=== PATIENT | male | born 1935 | race Caucasian/White ===

== ENCOUNTER 2016-11-03 22:21 | Inpatient (IN) | payer MEDICARE, BC ==
[2016-11-03] MEDS ORDERED: Sodium Chloride 0.9% 10 ML Syringe FLUSH PRN (22:45)
[2016-11-03] MEDS ORDERED: Ibuprofen 600 MG Tab PO ONE (23:23)
[2016-11-03] MEDS ORDERED: Sodium Chloride 0.9% 1,000 ML IV SCH (23:45)
[2016-11-04] MEDS ORDERED: Levofloxacin/Dextrose 5%-Water 500 MG in Premix Bag 1 BAG IV ONE (01:14)
--- NOTE | 2016-11-04 01:34 | EDM.PDOC ---
ED HPI GENERAL MEDICAL PROBLEM - General Chief Complaint: Fever Stated Complaint: ILLNESS Time Seen by Provider: 11/03/16 22:50 Source of Information: Reports: Patient, Family History Limitations: Reports: No Limitations - History of Present Illness INITIAL COMMENTS - FREE TEXT/NARRATIVE: pt spiked a high temp and became very weak tonight. This was quite sudden. 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 - Related Data Allergies Allergy/AdvReac Type Severity Reaction Status Date / Time No Known Allergies Allergy Verified 11/03/16 23:20 Home Meds: Home Meds Aspirin [Halfprin] 162 mg PO DAILY 11/03/16 [History] Clopidogrel Bisulfate [Clopidogrel] 75 mg PO DAILY 11/03/16 [History] Omeprazole 20 mg PO DAILY 11/03/16 [History] Sotalol HCl [Sotalol] 160 mg PO BID 11/03/16 [History] Sucralfate 1 gm PO BID 11/03/16 [History] atorvaSTATin [Lipitor] 80 mg PO BEDTIME 11/03/16 [History] Losartan Potassium 25 mg PO DAILY 11/04/16 [History] Past Medical History Cardiovascular History: Reports: CAD, High Cholesterol, Hypertension, [place], Pacemaker Respiratory History: Reports: TB Musculoskeletal History: Reports: Back Pain, Chronic - Infectious Disease History Infectious Disease History: Reports: Chicken Pox, Measles, Mumps, TB - Past Surgical History HEENT Surgical History: Reports: Tonsillectomy Cardiovascular Surgical History: Reports: Coronary Artery Stent, Percutaneous Transluminal Angioplasty GI Surgical History: Reports: Hernia Repair/Other Social & Family History - Tobacco Use Smoking Status *Q: Former Smoker Used Tobacco, but Quit: Yes Month Tobacco Last Used: 1963 - Caffeine Use Caffeine Use: Reports: None, Coffee - Recreational Drug Use Recreational Drug Use: No ED ROS GENERAL - Review of Systems Review Of Systems: See Below Constitutional: Reports: Fever, Chills, Malaise, Weakness HEENT: Reports: No Symptoms Respiratory: Reports: No Symptoms Cardiovascular: Reports: No Symptoms Endocrine: Reports: No Symptoms GI/Abdominal: Reports: No Symptoms : Reports: No Symptoms, Other (pt is spiking a high temp) Musculoskeletal: Reports: No Symptoms Skin: Reports: No Symptoms Neurological: Reports: Dizziness ED EXAM, SEPSIS - Physical Exam Exam: See Below Text/Narrative:: pt spiked a high temp and he became very weak. He had a temp of 102. He has not been vomiting. He has not had a cough. Exam Limited By: No Limitations General Appearance: Alert, Anxious Ears: Normal TMs Nose: Normal Inspection Throat/Mouth: Normal Inspection Head: Atraumatic Neck: Normal Inspection Respiratory/Chest: No Respiratory Distress Cardiovascular: Regular Rate, Rhythm GI/Abdominal Exam: Soft, Non-Tender (Male) Exam: Deferred Rectal (Males) Exam: Deferred Back: Normal Inspection Extremities: Normal Inspection Neurological: Alert, Oriented, Inattentive Course - Vital Signs Last Recorded V/S: Last Vital Signs Temp 38.6 C H 11/03/16 23:58 Pulse 60 11/04/16 00:44 Resp 20 11/04/16 00:44 BP 77/33 L 11/04/16 00:44 Pulse Ox 90 L 11/04/16 00:44 - Orders/Labs/Meds Orders: Active Orders 24 hr Category Date Time Status Chest 1V Frontal [CR] Stat Exams 11/03/16 22:44 Taken CULTURE BLOOD [BC] Urgent Lab 11/03/16 22:55 Received CULTURE BLOOD [BC] Urgent Lab 11/03/16 23:00 Received CULTURE URINE [RM] Stat Lab 11/04/16 00:40 Uncollected Levofloxacin/Dextrose 5%-Water [Levaquin in D5W 500 MG/ Med 11/04/16 01:14 Active 100 ML] 500 mg Premix Bag 1 bag IV ONETIME Sodium Chloride 0.9% [Normal Saline] 1,000 ml Med 11/03/16 23:45 Active IV ASDIRECTED Sodium Chloride 0.9% [Saline Flush] Med 11/03/16 22:45 Active 10 ml FLUSH ASDIRECTED PRN Blood Culture x2 Reflex Set [OM.PC] Urgent Oth 11/03/16 22:51 Ordered Saline Lock Insert [OM.PC] Routine Oth 11/03/16 22:45 Ordered Medication Orders Sodium Chloride (Normal Saline) 1,000 mls @ 400 mls/hr IV ASDIRECTED TASHA Last Admin: 11/04/16 00:04 Dose: 400 mls/hr Levofloxacin/Dextrose 500 mg/ (Premix) 100 mls @ 100 mls/hr IV ONETIME ONE Stop: 11/04/16 02:13 Sodium Chloride (Saline Flush) 10 ml FLUSH ASDIRECTED PRN PRN Reason: Keep Vein Open Labs: Laboratory Tests 11/03/16 11/03/16 11/03/16 Range/Units 22:43 22:55 22:55 WBC 13.4 H (4.5-11.0) K/uL RBC 4.36 (4.30-5.90) M/uL Hgb 14.2 (12.0-15.0) g/dL Hct 41.4 (40.0-54.0) % MCV 95 (80-98) fL MCH 33 H (27-31) pg MCHC 34 (32-36) % Plt Count 154 (150-400) K/uL Neut % (Auto) 89 H (36-66) % Lymph % (Auto) 5 L (24-44) % [place] % (Auto) 7 H (2-6) % Eos % (Auto) 0 L (2-4) % Baso % (Auto) 0 (0-1) % Sodium 140 (140-148) mmol/L Potassium 3.7 (3.6-5.2) mmol/L Chloride 105 (100-108) mmol/L Carbon Dioxide 27 (21-32) mmol/L Anion Gap 7.8 (5.0-14.0) mmol/L BUN 19 H (7-18) mg/dL Creatinine 1.6 H (0.8-1.3) mg/dL Est Cr Clr Drug Dosing 42.81 mL/min Estimated GFR (MDRD) 42 L (>60) Glucose 115 H (74-106) mg/dL Lactic Acid 2.1 H (0.4-2.0) mmol/L Calcium 8.5 (8.5-10.1) mg/dL Total Bilirubin 0.9 (0.2-1.0) mg/dL AST 19 (15-37) U/L ALT 17 (12-78) U/L Alkaline Phosphatase 88 (46-116) U/L Dkz-A-Rkvvayslziv Pept (5-450) pg/mL Total Protein 7.2 (6.4-8.2) g/dL Albumin 3.5 (3.4-5.0) g/dL Globulin 3.7 H (2.3-3.5) g/dL Albumin/Globulin Ratio 1.0 L (1.2-2.2) Urine Color Urine Appearance Urine pH (4.5-8.0) Ur Specific [place] (1.008-1.030) Urine Protein (NEGATIVE) mg/dL Urine Glucose (UA) (NEGATIVE) mg/dL Urine Ketones (NEGATIVE) mg/dL Urine Occult Blood (NEGATIVE) Urine Nitrite (NEGAITVE) Urine Bilirubin (NEGATIVE) Urine Urobilinogen (NORMAL) mg/dL Ur Leukocyte Esterase (NEGATIVE) Urine RBC (0-5) Urine WBC (0-5) Ur Epithelial Cells Amorphous Sediment Urine Bacteria Urine Mucus 11/03/16 11/03/16 Range/Units 23:04 23:48 WBC (4.5-11.0) K/uL RBC (4.30-5.90) M/uL Hgb (12.0-15.0) g/dL Hct (40.0-54.0) % MCV (80-98) fL MCH (27-31) pg MCHC (32-36) % Plt Count (150-400) K/uL Neut % (Auto) (36-66) % Lymph % (Auto) (24-44) % [place] % (Auto) (2-6) % Eos % (Auto) (2-4) % Baso % (Auto) (0-1) % Sodium (140-148) mmol/L Potassium (3.6-5.2) mmol/L Chloride (100-108) mmol/L Carbon Dioxide (21-32) mmol/L Anion Gap (5.0-14.0) mmol/L BUN (7-18) mg/dL Creatinine (0.8-1.3) mg/dL Est Cr Clr Drug Dosing mL/min Estimated GFR (MDRD) (>60) Glucose (74-106) mg/dL Lactic Acid (0.4-2.0) mmol/L Calcium (8.5-10.1) mg/dL Total Bilirubin (0.2-1.0) mg/dL AST (15-37) U/L ALT (12-78) U/L Alkaline Phosphatase (46-116) U/L Uef-Q-Tlrhynetnwq Pept 1306 H (5-450) pg/mL Total Protein (6.4-8.2) g/dL Albumin (3.4-5.0) g/dL Globulin (2.3-3.5) g/dL Albumin/Globulin Ratio (1.2-2.2) Urine Color Yellow Urine Appearance Slightly cloudy Urine pH 5.0 (4.5-8.0) Ur Specific [place] 1.010 (1.008-1.030) Urine Protein Negative (NEGATIVE) mg/dL Urine Glucose (UA) Negative (NEGATIVE) mg/dL Urine Ketones Negative (NEGATIVE) mg/dL Urine Occult Blood Moderate (NEGATIVE) Urine Nitrite Negative (NEGAITVE) Urine Bilirubin Negative (NEGATIVE) Urine Urobilinogen Normal (NORMAL) mg/dL Ur Leukocyte Esterase Negative (NEGATIVE) Urine RBC 5-10 H (0-5) Urine WBC 0-5 (0-5) Ur Epithelial Cells Not seen Amorphous Sediment Not seen Urine Bacteria Many Urine Mucus Not seen Meds: Medications Generic Name Dose Route Start Last Admin Trade Name Freq PRN Reason Stop Dose Admin Sodium Chloride 1,000 mls @ 400 mls/hr 11/03/16 23:45 11/04/16 00:04 Normal Saline IV 400 mls/hr ASDIRECTED TASHA Administration Levofloxacin/Dextrose 500 mg/ 100 mls @ 100 mls/hr 11/04/16 01:14 Premix IV 11/04/16 02:13 ONETIME ONE Sodium Chloride 10 ml 11/03/16 22:45 Saline Flush FLUSH ASDIRECTED PRN Keep Vein Open Discontinued Medications Generic Name Dose Route Start Last Admin Trade Name Freq PRN Reason Stop Dose Admin Ibuprofen 600 mg 11/03/16 23:23 11/03/16 23:58 Motrin PO 11/03/16 23:24 600 mg ONETIME ONE Administration - Re-Assessments/Exams Free Text/Narrative Re-Assessment/Exam: 11/04/16 01:30 pt was found to have an elevated wbc. His urine had alot bacteria and was cultured. His chest xray did not reveal a infiltrate. His temp was 102 and that is now down. blood cultures and urine culture is pending. His lactic acid is just borderline. 11/04/16 01:38 Departure - Departure Time of Disposition: 01:40 Disposition: Admitted As Inpatient 67 Condition: Fair Clinical Impression: Sepsis, Dehydration, UTI (urinary tract infection) - Discharge Information Forms: ED Department Discharge Care Plan Goals: admit to Dr feldman. - My Orders Last 24 Hours: My Active Orders 11/03/16 22:44 Chest 1V Frontal [CR] Stat 11/03/16 22:45 Sodium Chloride 0.9% [Saline Flush] 10 ml FLUSH ASDIRECTED PRN Saline Lock Insert [OM.PC] Routine 11/03/16 22:51 Blood Culture x2 Reflex Set [OM.PC] Urgent 11/03/16 22:55 CULTURE BLOOD [BC] Urgent 11/03/16 23:00 CULTURE BLOOD [BC] Urgent 11/03/16 23:45 Sodium Chloride 0.9% [Normal Saline] 1,000 ml IV ASDIRECTED 11/04/16 00:40 CULTURE URINE [RM] Stat 11/04/16 01:14 Levofloxacin/Dextrose 5%-Water [Levaquin in D5W 500 MG/100 ML] 500 mg Premix Bag 1 bag IV ONETIME - Assessment/Plan Last 24 Hours: My Active Orders 11/03/16 22:44 Chest 1V Frontal [CR] Stat 11/03/16 22:45 Sodium Chloride 0.9% [Saline Flush] 10 ml FLUSH ASDIRECTED PRN Saline Lock Insert [OM.PC] Routine 11/03/16 22:51 Blood Culture x2 Reflex Set [OM.PC] Urgent 11/03/16 22:55 CULTURE BLOOD [BC] Urgent 11/03/16 23:00 CULTURE BLOOD [BC] Urgent 11/03/16 23:45 Sodium Chloride 0.9% [Normal Saline] 1,000 ml IV ASDIRECTED 11/04/16 00:40 CULTURE URINE [RM] Stat 11/04/16 01:14 Levofloxacin/Dextrose 5%-Water [Levaquin in D5W 500 MG/100 ML] 500 mg Premix Bag 1 bag IV ONETIME
[2016-11-04] MEDS ORDERED: Sodium Chloride 0.9% 1,000 ML IV SCH (02:30)
--- NOTE | 2016-11-04 02:31 | PCM.HP ---
H&P History of Present Illness - General Date of Service: 11/04/16 Admit Problem/Dx: Admission Diagnosis/Problem Admission Diagnosis/Problem Acute cystitis Source of Information: Patient, Family, Provider History Limitations: Reports: No Limitations - History of Present Illness Initial Comments - Free Text/Narative: Oniel presents to the emergency room with rigors and weakness. He reports sudden onset of shaking chills the afternoon prior to admission. He was unable to get warm throughout the course of the afternoon and into the evening became very weak and confused. He was brought to the emergency room at that point. He reports that he was in his usual state of health prior to onset of symptoms. He does not report headache, shortness of breath, chest pain or abdominal pain. No reports of nausea. He reports some increased urinary frequency but this is not a new thing for him. No recent diarrhea. No sick contacts. No travel. Appetite had been normal up until yesterday afternoon. Workup in the emergency room was suggestive of a urinary tract infection with sepsis. He will be admitted to the intensive care unit for management. - Related Data Allergies/Adverse Reactions: Allergies Allergy/AdvReac Type Severity Reaction Status Date / Time No Known Allergies Allergy Verified 11/03/16 23:20 Home Medications: Home Meds Aspirin [Halfprin] 162 mg PO DAILY 11/03/16 [History] Clopidogrel Bisulfate [Clopidogrel] 75 mg PO DAILY 11/03/16 [History] Omeprazole 20 mg PO DAILY 11/03/16 [History] Sotalol HCl [Sotalol] 160 mg PO BID 11/03/16 [History] Sucralfate 1 gm PO BID 11/03/16 [History] atorvaSTATin [Lipitor] 80 mg PO BEDTIME 11/03/16 [History] Fish Oil/DHA/EPA [Fish Oil 1,200 MG] 1 each PO BID 11/04/16 [History] Losartan Potassium 12.5 mg PO DAILY 11/04/16 [History] Past Medical History Cardiovascular History: Reports: CAD, High Cholesterol, Hypertension, [place], Pacemaker Respiratory History: Reports: TB Other Respiratory History: c-pap Musculoskeletal History: Reports: Back Pain, Chronic - Infectious Disease History Infectious Disease History: Reports: Chicken Pox, Measles, Mumps, TB - Past Surgical History HEENT Surgical History: Reports: Tonsillectomy Cardiovascular Surgical History: Reports: Coronary Artery Stent, Percutaneous Transluminal Angioplasty GI Surgical History: Reports: Hernia Repair/Other Social & Family History - Family History Cardiac: Reports: CAD Oncologic: Reports: Colon - Tobacco Use Smoking Status *Q: Former Smoker Used Tobacco, but Quit: Yes Month Tobacco Last Used: 1963 - Caffeine Use Caffeine Use: Reports: None, Coffee - Alcohol Use Alcohol Use History: Yes Days Per Week of Alcohol Use: 3 - Recreational Drug Use Recreational Drug Use: No H&P Review of Systems - Review of Systems: Review Of Systems: See Below Free Text/Narrative: A complete 12 point review of systems was obtained. Pertinent positives and negatives are noted in the history of present illness. All other systems were reviewed and were negative except as noted. Exam - Exam Exam: See Below - Vital Signs Vital Signs: Last Vital Signs Temp 37.8 C 11/04/16 01:26 Pulse 60 11/04/16 02:25 Resp 24 H 11/04/16 02:25 BP 95/52 L 11/04/16 02:25 Pulse Ox 61 L 11/04/16 02:25 Weight: 108.862 kg - Exam Quality Assessment: No: Supplemental Oxygen General: Alert, Oriented, Cooperative. No: Mild Distress HEENT: Conjunctiva Clear. No: Mucosa Moist & [place] (dry), Scleral Icterus Neck: Supple, Trachea Midline. No: Lymphadenopathy, JVD Lungs: Clear to Auscultation, Normal Respiratory Effort Cardiovascular: Regular Rate, Regular Rhythm, Systolic Murmur (soft SHIVA at the apex) GI/Abdominal Exam: Normal Bowel Sounds, Soft, Non-Tender, No Distention, Other ( obese) Extremities: Normal Inspection, Pedal Edema (mild pitting bilateral ankle edema) , Other (scar left lower leg (healed)) Peripheral Pulses: 2+: Dorsalis Pedis (L), Dorsalis Pedis (R) Skin: Warm, Dry. No: Rash Neuro Extensive - Mental Status: Alert, Oriented x3, Nl Response to Commands Neuro Extensive - Motor, Sensory, Reflexes: CN II-XII Intact. No: Dysarthria, Abnormal Motor, Tremor Psychiatric: Alert, Normal Affect - Patient Data Lab Results Last 24 hrs: Laboratory Results - last 24 hr 11/03/16 11/03/16 11/03/16 Range/Units 22:43 22:55 22:55 WBC 13.4 H (4.5-11.0) K/uL RBC 4.36 (4.30-5.90) M/uL Hgb 14.2 (12.0-15.0) g/dL Hct 41.4 (40.0-54.0) % MCV 95 (80-98) fL MCH 33 H (27-31) pg MCHC 34 (32-36) % Plt Count 154 (150-400) K/uL Neut % (Auto) 89 H (36-66) % Lymph % (Auto) 5 L (24-44) % [place] % (Auto) 7 H (2-6) % Eos % (Auto) 0 L (2-4) % Baso % (Auto) 0 (0-1) % Sodium 140 (140-148) mmol/L Potassium 3.7 (3.6-5.2) mmol/L Chloride 105 (100-108) mmol/L Carbon Dioxide 27 (21-32) mmol/L Anion Gap 7.8 (5.0-14.0) mmol/L BUN 19 H (7-18) mg/dL Creatinine 1.6 H (0.8-1.3) mg/dL Est Cr Clr Drug Dosing 42.81 mL/min Estimated GFR (MDRD) 42 L (>60) Glucose 115 H (74-106) mg/dL Lactic Acid 2.1 H (0.4-2.0) mmol/L Calcium 8.5 (8.5-10.1) mg/dL Total Bilirubin 0.9 (0.2-1.0) mg/dL AST 19 (15-37) U/L ALT 17 (12-78) U/L Alkaline Phosphatase 88 (46-116) U/L Oqs-O-Mudetlzyoiu Pept (5-450) pg/mL Total Protein 7.2 (6.4-8.2) g/dL Albumin 3.5 (3.4-5.0) g/dL Globulin 3.7 H (2.3-3.5) g/dL Albumin/Globulin Ratio 1.0 L (1.2-2.2) Urine Color Urine Appearance Urine pH (4.5-8.0) Ur Specific [place] (1.008-1.030) Urine Protein (NEGATIVE) mg/dL Urine Glucose (UA) (NEGATIVE) mg/dL Urine Ketones (NEGATIVE) mg/dL Urine Occult Blood (NEGATIVE) Urine Nitrite (NEGAITVE) Urine Bilirubin (NEGATIVE) Urine Urobilinogen (NORMAL) mg/dL Ur Leukocyte Esterase (NEGATIVE) Urine RBC (0-5) Urine WBC (0-5) Ur Epithelial Cells Amorphous Sediment Urine Bacteria Urine Mucus 11/03/16 11/03/16 Range/Units 23:04 23:48 WBC (4.5-11.0) K/uL RBC (4.30-5.90) M/uL Hgb (12.0-15.0) g/dL Hct (40.0-54.0) % MCV (80-98) fL MCH (27-31) pg MCHC (32-36) % Plt Count (150-400) K/uL Neut % (Auto) (36-66) % Lymph % (Auto) (24-44) % [place] % (Auto) (2-6) % Eos % (Auto) (2-4) % Baso % (Auto) (0-1) % Sodium (140-148) mmol/L Potassium (3.6-5.2) mmol/L Chloride (100-108) mmol/L Carbon Dioxide (21-32) mmol/L Anion Gap (5.0-14.0) mmol/L BUN (7-18) mg/dL Creatinine (0.8-1.3) mg/dL Est Cr Clr Drug Dosing mL/min Estimated GFR (MDRD) (>60) Glucose (74-106) mg/dL Lactic Acid (0.4-2.0) mmol/L Calcium (8.5-10.1) mg/dL Total Bilirubin (0.2-1.0) mg/dL AST (15-37) U/L ALT (12-78) U/L Alkaline Phosphatase (46-116) U/L Jdw-T-Ykycxjzzjkn Pept 1306 H (5-450) pg/mL Total Protein (6.4-8.2) g/dL Albumin (3.4-5.0) g/dL Globulin (2.3-3.5) g/dL Albumin/Globulin Ratio (1.2-2.2) Urine Color Yellow Urine Appearance Slightly cloudy Urine pH 5.0 (4.5-8.0) Ur Specific [place] 1.010 (1.008-1.030) Urine Protein Negative (NEGATIVE) mg/dL Urine Glucose (UA) Negative (NEGATIVE) mg/dL Urine Ketones Negative (NEGATIVE) mg/dL Urine Occult Blood Moderate (NEGATIVE) Urine Nitrite Negative (NEGAITVE) Urine Bilirubin Negative (NEGATIVE) Urine Urobilinogen Normal (NORMAL) mg/dL Ur Leukocyte Esterase Negative (NEGATIVE) Urine RBC 5-10 H (0-5) Urine WBC 0-5 (0-5) Ur Epithelial Cells Not seen Amorphous Sediment Not seen Urine Bacteria Many Urine Mucus Not seen Result Diagrams: 11/03/16 22:43 11/03/16 22:55 Imaging Impressions Last 24 hrs: CXR - images personally reviewed - heart size is normal. There is evidence for previous surgical procedure to the left chest with some volume loss. No definite infiltrate, mass or effusion is seen. *Q Meaningful Use (ADM) - VTE *Q VTE Criteria *Q: - VTE Risk Assess *Q Each Risk Factor Represents 1 Point: Swollen Legs, Current, Obesity (BMI greater than 30) Total Score 1 Point Risk Factors: 2 Each Risk Factor Represents 2 Points: None Total Score 2 Point Risk Factors: 0 Each Risk Factor Represents 3 Points: Age 75 Years or Greater Total Score 3 Point Risk Factors: 3 Each Risk Factor Represents 5 Points: None Total Score 5 Point Risk Factors: 0 Venous Thromboembolism Risk Factor Score *Q: 5 - Stroke *Q Stroke Criteria *Q: - AMI *Q AMI Criteria *Q: - Problem List (1) Acute cystitis SNOMED Code(s): 93262870 ICD Code: N30.00 - ACUTE CYSTITIS WITHOUT HEMATURIA Status: Acute Current Visit: Yes Qualifiers: Hematuria presence: without hematuria Qualified Code(s): N30.00 - Acute cystitis without hematuria (2) Sepsis SNOMED Code(s): 07679790 ICD Code: A41.9 - SEPSIS, UNSPECIFIED ORGANISM Status: Acute Current Visit: Yes (3) CKD (chronic kidney disease) stage 3, GFR 30-59 ml/min SNOMED Code(s): 572755092 ICD Code: N18.3 - CHRONIC KIDNEY DISEASE, STAGE 3 (MODERATE) Status: Chronic Current Visit: Yes (4) Coronary artery disease SNOMED Code(s): 48123512 ICD Code: I25.10 - ATHSCL HEART DISEASE OF [place] CORONARY ARTERY W/O ANG PCTRS Status: Chronic Current Visit: Yes Qualifiers: Coronary Disease-Associated Artery/Lesion type: [place] artery [place] vs. transplanted heart: [place] heart Associated angina: without angina Qualified Code(s): I25.10 - Atherosclerotic heart disease of [place] coronary artery without angina pectoris Problem List Initiated/Reviewed/Updated: Yes Orders Last 24hrs: Active Orders 24 hr Category Date Time Status Patient Status Manage Transfer [TRANSFER] Routine ADT 11/04/16 02:20 Ordered Chest 1V Frontal [CR] Stat Exams 11/03/16 22:44 Taken CULTURE BLOOD [BC] Urgent Lab 11/03/16 22:55 Received CULTURE BLOOD [BC] Urgent Lab 11/03/16 23:00 Received CULTURE URINE [RM] Stat Lab 11/04/16 01:31 Received Sodium Chloride 0.9% [Normal Saline] 1,000 ml Med 11/03/16 23:45 Active IV ASDIRECTED Sodium Chloride 0.9% [Normal Saline] 1,000 ml Med 11/04/16 02:30 Ordered IV ASDIRECTED Sodium Chloride 0.9% [Saline Flush] Med 11/03/16 22:45 Active 10 ml FLUSH ASDIRECTED PRN Blood Culture x2 Reflex Set [OM.PC] Urgent Oth 11/03/16 22:51 Ordered Saline Lock Insert [OM.PC] Routine Oth 11/03/16 22:45 Ordered Resuscitation Status Routine Resus Stat 11/04/16 02:22 Ordered Medication Orders Sodium Chloride (Normal Saline) 1,000 mls @ 400 mls/hr IV ASDIRECTED TASHA Last Infusion: 11/04/16 01:44 Dose: 999 mls/hr Admin: 11/04/16 00:04 Dose: 400 mls/hr Sodium Chloride (Normal Saline) 1,000 mls @ 500 mls/hr IV ASDIRECTED TASHA Stop: 11/04/16 04:31 Last Admin: 11/04/16 02:24 Dose: 500 mls/hr Sodium Chloride (Saline Flush) 10 ml FLUSH ASDIRECTED PRN PRN Reason: Keep Vein Open Assessment/Plan Comment:: Assessment and Plan - Acute cystitis with sepsis - evidence for sepsis includes hypotension, altered mental state as well as elevated lactic acid level. Urine sample is suggestive of infection with many bacteria noted. No history of previous bladder infections. He has received antibiotics and 1 L of normal saline so far. Cultures have been collected. -Second 1 L bolus -Additional boluses if he remains hypotensive -additional maintenance IV fluids after second bolus -Repeat lactic acid -start ceftriaxone (did receive levofloxacin in the emergency room) -Follow-up cultures Coronary artery disease - No active symptoms. -Continue dual antiplatelet therapy Stage III chronic kidney disease - Creatinine mildly elevated from baseline. -IV fluids and repeat labs in the morning Maintenance issues - - DVT prophylaxis - mechanical and dual antiplatelet therapy - GI prophylaxis - PPI - Nutrition - heart healthy diet - Brown catheter - not indicated CODE STATUS - full code Admission justification - This patient will be admitted for inpatient services and is medically appropriate meeting medical necessity for inpatient admission as outlined in my documentation. I reasonably expect the patient will require inpatient services that span a period time over 2 midnights. I reasonably expect this patient to be discharged or transferred within 96 hours [facility]. Disposition - anticipate discharge to home after the hospital stay Primary care physician - [facility] Neftali Rodriguez M.D.
[2016-11-04] MEDS ORDERED: LORazepam 2 MG/ML MDV IVPUSH PRN (02:44)
[2016-11-04] MEDS ORDERED: Ondansetron 4 MG Tab.DIS PO PRN (02:44)
[2016-11-04] MEDS ORDERED: Polyethylene Glycol 3350 Powder 17 GM Packet PO PRN (02:44)
[2016-11-04] MEDS: Sodium Chloride 0.9% 1,000 ML IV SCH ×3 (04:16→21:54)
[2016-11-04] MEDS: Acetaminophen 325 MG Tab PO PRN ×2 (09:08→16:14)
[2016-11-04] MEDS: Aspirin 81 MG Tab.EC PO SCH (09:08)
[2016-11-04] MEDS: Pantoprazole 40 MG Tab.CR PO SCH (09:08)
[2016-11-04] MEDS: Clopidogrel 75 MG Tab PO SCH (09:08)
[2016-11-04] MEDS: Sotalol 80 MG Tab PO SCH ×2 (09:08→20:14)
[2016-11-04] MEDS: Sucralfate 1 GM Tab PO SCH ×2 (09:09→20:14)
[2016-11-04] MEDS: atorvaSTATin 20 MG Tab PO SCH (20:13)
[2016-11-04] MEDS: cefTRIAXone 2 GM in Sodium Chloride 0.9% 50 ML IV SCH (20:14)
[2016-11-05] MEDS: Sodium Chloride 0.9% 1,000 ML IV SCH (05:46)
[2016-11-05] MEDS: Pantoprazole 40 MG Tab.CR PO SCH (08:12)
[2016-11-05] MEDS: Clopidogrel 75 MG Tab PO SCH (08:12)
[2016-11-05] MEDS: Sotalol 80 MG Tab PO SCH ×2 (08:13→20:38)
[2016-11-05] MEDS: Aspirin 81 MG Tab.EC PO SCH (08:13)
[2016-11-05] MEDS: Sucralfate 1 GM Tab PO SCH ×2 (08:13→20:40)
--- NOTE | 2016-11-05 09:29 | PCM.PN ---
- General Info Date of Service: 11/05/16 Functional Status: Reports: Pain Controlled, Tolerating Diet - Review of Systems General: Reports: Weakness. Denies: Fever Gastrointestinal: Denies: Abdominal Pain Systems Review Comment:: No acute events overnight. Clinically feeling better today with improved strength. No fevers overnight. No abdominal pain or nausea. Appetite has been improving. 3 out of 4 blood cultures are growing beta strep. Urine culture has mixed positive emma. Tolerating current antibiotics. - Patient Data Vitals - Most Recent: Last Vital Signs Temp 36.8 C 11/05/16 08:00 Pulse 60 11/05/16 08:13 Resp 15 11/05/16 08:00 BP 125/62 11/05/16 08:13 Pulse Ox 95 11/05/16 08:00 Weight - Most Recent: 112.9 kg I&O - Last 24 Hours: Intake & Output 11/04/16 11/05/16 11/05/16 22:59 06:59 14:59 Intake Total 2950 1425 Output Total 550 150 Balance 2400 1275 Med Orders - Current: Current Medications Acetaminophen (Tylenol) 650 mg PO Q4H PRN PRN Reason: Pain (Mild 1-3)/fever Last Admin: 11/04/16 16:14 Dose: 650 mg Aspirin (Halfprin) 162 mg PO DAILY [facility] Last Admin: 11/05/16 08:13 Dose: 162 mg Atorvastatin Calcium (Lipitor) 80 mg PO BEDTIME [facility] Last Admin: 11/04/16 20:13 Dose: 80 mg Clopidogrel Bisulfate (Plavix) 75 mg PO DAILY [facility] Last Admin: 11/05/16 08:12 Dose: 75 mg Ceftriaxone Sodium 2 gm/ (Sodium Chloride) 50 mls @ 100 mls/hr IV Q24H [facility] Last Admin: 11/04/16 20:14 Dose: 100 mls/hr Vancomycin HCl 1.5 gm/ Sodium (Chloride) 250 mls @ 150 mls/hr IV Q24H [facility] Last Admin: 11/04/16 11:58 Dose: 150 mls/hr Lorazepam (Ativan) 0.5 mg IVPUSH Q4H PRN PRN Reason: Nausea/Vomiting Ondansetron HCl (Zofran Odt) 4 mg PO Q6H PRN PRN Reason: Nausea able to take PO Pantoprazole Sodium (Protonix) 40 mg PO ACBREAKFAST [facility] Last Admin: 11/05/16 08:12 Dose: 40 mg Polyethylene Glycol (Miralax) 17 gm PO DAILY PRN PRN Reason: Constipation Sodium Chloride (Saline Flush) 10 ml FLUSH ASDIRECTED PRN PRN Reason: Keep Vein Open Sotalol HCl (Betapace) 160 mg PO BID [facility] Last Admin: 11/05/16 08:13 Dose: 160 mg Sucralfate (Carafate) 1 gm PO BID [facility] Last Admin: 11/05/16 08:13 Dose: 1 gm Discontinued Medications Sodium Chloride (Normal Saline) 1,000 mls @ 400 mls/hr IV ASDIRECTED [facility] Last Infusion: 11/04/16 01:44 Dose: 999 mls/hr Levofloxacin/Dextrose 500 mg/ (Premix) 100 mls @ 100 mls/hr IV ONETIME ONE Stop: 11/04/16 02:13 Last Admin: 11/04/16 01:42 Dose: 100 mls/hr Sodium Chloride (Normal Saline) 1,000 mls @ 500 mls/hr IV ASDIRECTED [facility] Stop: 11/04/16 04:31 Last Admin: 11/04/16 02:24 Dose: 500 mls/hr Sodium Chloride (Normal Saline) 1,000 mls @ 125 mls/hr IV ASDIRECTED [facility] Last Admin: 11/05/16 05:46 Dose: 125 mls/hr Ibuprofen (Motrin) 600 mg PO ONETIME ONE Stop: 11/03/16 23:24 Last Admin: 11/03/16 23:58 Dose: 600 mg - Exam Quality Assessment: No: Supplemental Oxygen General: Alert, Oriented, Cooperative, No Acute Distress Neck: Supple Lungs: Normal Respiratory Effort Cardiovascular: Regular Rate, Regular Rhythm GI/Abdominal Exam: Soft, No Distention Extremities: Pedal Edema (bilateral pitting ankle edema), Other (mild edema of both hands) Skin: Warm, Dry Psy/Mental Status: Alert, Normal Affect - Problem List & Annotations (1) Acute cystitis SNOMED Code(s): 97701349 Code(s): N30.00 - ACUTE CYSTITIS WITHOUT HEMATURIA Status: Acute Current Visit: Yes Qualifiers: Hematuria presence: without hematuria Qualified Code(s): N30.00 - Acute cystitis without hematuria (2) Sepsis SNOMED Code(s): 27673098 Code(s): A41.9 - SEPSIS, UNSPECIFIED ORGANISM Status: Acute Current Visit : Yes Qualifiers: Sepsis type: Streptococcus group B Qualified Code(s): A40.1 - Sepsis due to streptococcus, group B (3) CKD (chronic kidney disease) stage 3, GFR 30-59 ml/min SNOMED Code(s): 959659502 Code(s): N18.3 - CHRONIC KIDNEY DISEASE, STAGE 3 (MODERATE) Status: Chronic Current Visit: Yes (4) Coronary artery disease SNOMED Code(s): 11159078 Code(s): I25.10 - ATHSCL HEART DISEASE OF [place] CORONARY ARTERY W/O ANG PCTRS Status: Chronic Current Visit: Yes Qualifiers: Coronary Disease-Associated Artery/Lesion type: [place] artery [place] vs. transplanted heart: [place] heart Associated angina: without angina Qualified Code(s): I25.10 - Atherosclerotic heart disease of [place] coronary artery without angina pectoris - Problem List Review Problem List Initiated/Reviewed/Updated: Yes - My Orders Last 24 Hours: My Active Orders 11/04/16 12:00 Vancomycin 1.5 gm Sodium Chloride 0.9% [Normal Saline] 250 ml IV Q24H 11/04/16 21:00 cefTRIAXone [Rocephin] 2 gm Sodium Chloride 0.9% [Normal Saline] 50 ml IV Q24H 11/05/16 09:27 Transfer Patient (Change bed) [ADT] Routine Discontinue Telemetry Monitoring [Cardiac Monitoring Discontinue] [RC] Click to Edit Convert IV to Saline Lock [OM.PC] Routine 11/06/16 05:00 BASIC METABOLIC PANEL,BMP [CHEM] Timed CBC W/O DIFF,HEMOGRAM [HEME] Timed (1) - Plan Plan:: Assessment and Plan - Acute cystitis with sepsis - sepsis has resolved. Blood cultures are normal but he is still off of antihypertensives at this time. 3 out of 4 blood cultures with beta strep though further identification and sensitivities are pending. -Saline lock IV fluids -Additional boluses if he remains hypotensive -Continue ceftriaxone and vancomycin until cultures are final Repeat labs in the morning- -Follow-up cultures Coronary artery disease - No active symptoms. -Continue dual antiplatelet therapy Stage III chronic kidney disease - Creatinine level has improved. -Repeat labs in the morning Maintenance issues - - DVT prophylaxis - mechanical and dual antiplatelet therapy - GI prophylaxis - PPI - Nutrition - heart healthy diet Disposition - anticipate discharge to home after the hospital stay Primary care physician - [facility] [place], [place] Neftali Rodriguez M.D.
[2016-11-05] MEDS: cefTRIAXone 2 GM in Sodium Chloride 0.9% 50 ML IV SCH (20:28)
[2016-11-05] MEDS: atorvaSTATin 20 MG Tab PO SCH (20:41)
[2016-11-06] MEDS: Pantoprazole 40 MG Tab.CR PO SCH (08:17)
[2016-11-06] MEDS: Sotalol 80 MG Tab PO SCH (08:26)
[2016-11-06] MEDS: Sucralfate 1 GM Tab PO SCH (08:30)
[2016-11-06] MEDS: Clopidogrel 75 MG Tab PO SCH (08:30)
[2016-11-06] MEDS: Aspirin 81 MG Tab.EC PO SCH (08:31)
--- NOTE | 2016-11-06 09:02 | CR ---
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 Normal heart size. Old postoperative or posttraumatic andino es left fifth rib. Chest otherwise negative.
[2016-11-06] MEDS ORDERED: Furosemide 20 MG/2 ML VIAL IV ONE (11:30)
[2016-11-06] MEDS ORDERED: Penicillin V Potassium 250 MG Tab PO SCH (12:30)
[2016-11-06 13:56] VITALS: BP 122/82
--- NOTE | 2016-11-06 16:05 | PCM.DCSUM1 ---
Discharge Summary - Hospital Course Brief History: Mr. Jordan is an 81-year-old gentleman abruptly developed weakness and shaking chills. On evaluation in the emergency department was noted to have sepsis secondary to urinary tract infection. - Discharge Data Discharge Date: 11/06/16 Discharge Disposition: Home, Self-Care 01 Condition: Fair - Discharge Diagnosis/Problem(s) (1) Peripheral edema SNOMED Code(s): 915363399 ICD Code: R60.9 - EDEMA, UNSPECIFIED Status: Acute Current Visit: Yes (2) Sepsis SNOMED Code(s): 69608908 ICD Code: A41.9 - SEPSIS, UNSPECIFIED ORGANISM Status: Acute Current Visit: Yes Qualifiers: Sepsis type: Streptococcus group B Qualified Code(s): A40.1 - Sepsis due to streptococcus, group B (3) Acute cystitis SNOMED Code(s): 09867471 ICD Code: N30.00 - ACUTE CYSTITIS WITHOUT HEMATURIA Status: Acute Current Visit: Yes Qualifiers: Hematuria presence: without hematuria Qualified Code(s): N30.00 - Acute cystitis without hematuria (4) CKD (chronic kidney disease) stage 3, GFR 30-59 ml/min SNOMED Code(s): 005811490 ICD Code: N18.3 - CHRONIC KIDNEY DISEASE, STAGE 3 (MODERATE) Status: Chronic Current Visit: Yes (5) Coronary artery disease SNOMED Code(s): 86363326 ICD Code: I25.10 - ATHSCL HEART DISEASE OF [place] CORONARY ARTERY W/O ANG PCTRS Status: Chronic Current Visit: Yes Qualifiers: Coronary Disease-Associated Artery/Lesion type: [place] artery [place] vs. transplanted heart: [place] heart Associated angina: without angina Qualified Code(s): I25.10 - Atherosclerotic heart disease of [place] coronary artery without angina pectoris - Patient Summary/Data Hospital Course: Mr. Jordan is an 81-year-old gentleman who developed rapid onset of infection with chills and profound weakness. He was brought into the emergency department for further evaluation and was felt to be septic secondary to an underlying urinary tract infection. Blood cultures and urine cultures were obtained at the time of admission and he was started on IV antibiotic therapy as well as vigorous fluid resuscitation for management of sepsis. By the following day his white blood cell count did normalize and he was hemodynamically stable. Urine culture grew only mixed emma, and 3 of 4 blood culture bottles grew strep B, non-A or non-B. Urinary tract was felt to be the source of infection. Following vigorous fluid resuscitation he did develop significant peripheral edema and was given IV furosemide prior to discharge with good improvement of the edema. He will be discharged home on an additional 7 days of penicillin VK 500 mg 4 times daily. He will also be given furosemide and potassium to take until his peripheral edema has totally resolved. He should be on a 2 g sodium diet, activity will be as tolerated. He will return to the emergency department or urgent care if he develops recurrent fever or chills. He does not have a primary care provider in the area but will be seeing his primary care physician when he returns to [place] and will also see a urologist at that time. Post void residual bladder scan was obtained on the day of discharge and showed no significant urinary retention. - Patient Instructions Diet: Low Sodium Activity: As Tolerated Other/Special Instructions: Use furosemide as needed to manage lower leg swelling. Take potassium daily when taking furosemide. Return to the emergency department or urgent care for any recurrent temperature elevation or chills. - Discharge Plan Prescriptions/Med Rec: Furosemide 20 mg PO DAILY PRN #30 tablet PRN Reason: Edema Penicillin V Potassium [Veetids] 500 mg PO Q6H #28 tablet Potassium Chloride 20 meq PO DAILY PRN #30 tablet.er PRN Reason: Other Home Medications: Home Meds Aspirin [Halfprin] 162 mg PO DAILY 11/03/16 [History] Clopidogrel Bisulfate [Clopidogrel] 75 mg PO DAILY 11/03/16 [History] Omeprazole 20 mg PO DAILY 11/03/16 [History] Sotalol HCl [Sotalol] 160 mg PO BID 11/03/16 [History] Sucralfate 1 gm PO BID 11/03/16 [History] atorvaSTATin [Lipitor] 80 mg PO BEDTIME 11/03/16 [History] Fish Oil/DHA/EPA [Fish Oil 1,200 MG] 1 each PO BID 11/04/16 [History] Losartan Potassium 12.5 mg PO DAILY 11/04/16 [History] Furosemide 20 mg PO DAILY PRN #30 tablet 11/06/16 [Rx] Penicillin V Potassium [Veetids] 500 mg PO Q6H #28 tablet 11/06/16 [Rx] Potassium Chloride 20 meq PO DAILY PRN #30 tablet.er 11/06/16 [Rx] Referrals: PCP,None [Primary Care Provider] - - Patient Data Vitals - Most Recent: Last Vital Signs Temp 98.6 F 11/06/16 13:55 Pulse 60 11/06/16 13:55 Resp 18 11/06/16 13:55 BP 122/82 11/06/16 13:55 Pulse Ox 96 11/06/16 13:55 Weight - Most Recent: 248 lb 14.43 oz I&O - Last 24 hours: Intake & Output 11/06/16 11/06/16 11/06/16 06:59 14:59 22:59 Intake Total 240 Output Total 1000 Balance -760 Lab Results - Last 24 hrs: Laboratory Results - last 24 hr 11/06/16 11/06/16 Range/Units 05:00 05:30 WBC 5.0 (4.5-11.0) K/uL RBC 3.85 L (4.30-5.90) M/uL Hgb 12.0 (12.0-15.0) g/dL Hct 37.1 L (40.0-54.0) % MCV 96 (80-98) fL MCH 31 (27-31) pg MCHC 32 (32-36) % Plt Count 129 L (150-400) K/uL Sodium 144 (140-148) mmol/L Potassium 3.6 (3.6-5.2) mmol/L Chloride 110 H (100-108) mmol/L Carbon Dioxide 27 (21-32) mmol/L Anion Gap 10.6 (5.0-14.0) mmol/L BUN 13 (7-18) mg/dL Creatinine 1.3 (0.8-1.3) mg/dL Est Cr Clr Drug Dosing 52.69 mL/min Estimated GFR (MDRD) 53 L (>60) Glucose 112 H (74-106) mg/dL Calcium 7.9 L (8.5-10.1) mg/dL Med Orders - Current: Current Medications Acetaminophen (Tylenol) 650 mg PO Q4H PRN PRN Reason: Pain (Mild 1-3)/fever Last Admin: 11/04/16 16:14 Dose: 650 mg Aspirin (Halfprin) 162 mg PO DAILY [facility] Last Admin: 11/06/16 08:31 Dose: 162 mg Atorvastatin Calcium (Lipitor) 80 mg PO BEDTIME [facility] Last Admin: 11/05/16 20:41 Dose: 80 mg Clopidogrel Bisulfate (Plavix) 75 mg PO DAILY [facility] BEDS AT [facility] Last Admin: 11/06/16 08:30 Dose: 75 mg Lorazepam (Ativan) 0.5 mg IVPUSH Q4H PRN PRN Reason: Nausea/Vomiting Ondansetron HCl (Zofran Odt) 4 mg PO Q6H PRN PRN Reason: Nausea able to take PO Pantoprazole Sodium (Protonix) 40 mg PO ACBREAKFAST COUNTS INCLUDE 234 BEDS AT THE [facility] Last Admin: 11/06/16 08:17 Dose: 40 mg Penicillin V Potassium (Veetids) 500 mg PO Q6H COUNTS INCLUDE 234 BEDS AT THE [facility] Last Admin: 11/06/16 14:09 Dose: 500 mg Polyethylene Glycol (Miralax) 17 gm PO DAILY PRN PRN Reason: Constipation Sodium Chloride (Saline Flush) 10 ml FLUSH ASDIRECTED PRN PRN Reason: Keep Vein Open Sotalol HCl (Betapace) 160 mg PO BID [facility] 234 BEDS AT [facility] Last Admin: 11/06/16 08:26 Dose: 160 mg Sucralfate (Carafate) 1 gm PO BID [facility]CLUDE 234 BEDS AT [facility] Last Admin: 11/06/16 08:30 Dose: 1 gm Discontinued Medications Furosemide (Lasix) 20 mg IV ONETIME ONE Stop: 11/06/16 11:31 Last Admin: 11/06/16 11:42 Dose: 20 mg Sodium Chloride (Normal Saline) 1,000 mls @ 400 mls/hr IV ASDIRECTED COUNTS INCLUDE 234 BEDS AT [facility] Last Infusion: 11/04/16 01:44 Dose: 999 mls/hr Levofloxacin/Dextrose 500 mg/ (Premix) 100 mls @ 100 mls/hr IV ONETIME ONE Stop: 11/04/16 02:13 Last Admin: 11/04/16 01:42 Dose: 100 mls/hr Sodium Chloride (Normal Saline) 1,000 mls @ 500 mls/hr IV ASDIRECTED COUNTS INCLUDE 234 BEDS AT THE [facility] Stop: 11/04/16 04:31 Last Admin: 11/04/16 02:24 Dose: 500 mls/hr Sodium Chloride (Normal Saline) 1,000 mls @ 125 mls/hr IV ASDIRECTED COUNTS INCLUDE 234 BEDS AT [facility] Last Admin: 11/05/16 05:46 Dose: 125 mls/hr Ceftriaxone Sodium 2 gm/ (Sodium Chloride) 50 mls @ 100 mls/hr IV Q24H [facility]CLUDE 234 BEDS AT [facility] Last Admin: 11/05/16 20:28 Dose: 100 mls/hr Vancomycin HCl 1.5 gm/ Sodium (Chloride) 250 mls @ 150 mls/hr IV Q24H [facility]CLUDE 234 BEDS AT [facility] Last Admin: 11/05/16 12:23 Dose: 150 mls/hr Ibuprofen (Motrin) 600 mg PO ONETIME ONE Stop: 11/03/16 23:24 Last Admin: 11/03/16 23:58 Dose: 600 mg *Q Meaningful Use (DIS) - VTE *Q VTE Criteria *Q: - Stroke *Q Stroke Criteria *Q: - AMI *Q AMI Criteria *Q:
== END 2016-11-06 16:29 | disposition home or self-care (01) | DRG 872 ==
LOC: JP.ED 22:21 → JP.ICU 11-04 02:20 → JP.MS 11-05 14:20
PROVIDERS: ADMIT Internal Medicine; ATTEND Hospitalist
DX: A41.9 Sepsis, unspecified organism (principal); N39.0 Urinary tract infection, site not specified; E86.0 Dehydration; N30.00 Acute cystitis without hematuria; R60.9 Edema, unspecified; I10 Essential (primary) hypertension; I12.9 Hypertensive chronic kidney disease with stage 1 through stage 4 chronic kidney disease, or unspecified chronic kidney disease; N18.3 Chronic kidney disease, stage 3 (moderate); I25.10 Atherosclerotic heart disease of native coronary artery without angina pectoris; E78.00 Pure hypercholesterolemia, unspecified; I25.2 Old myocardial infarction; Z95.0 Presence of cardiac pacemaker; Z95.5 Presence of coronary angioplasty implant and graft; Z87.891 Personal history of nicotine dependence; Z79.899 Other long term (current) drug therapy
CPT/HCPCS: 36415; 71010 ×2; 80053; 83605; 83880; 85025; 87040 ×2; 87086; 96361; 96365; 99285; A9270; J1956; J7040; 80048; 81001; 85027; 87077; J0696; J1940; J3370; J7050

== ENCOUNTER 2021-09-29 15:25 | Emergency (ER) | payer MEDICARE, BC ==
[2021-09-29 16:05] VITALS: BP 136/65; PULSE 59
== END 2021-09-29 17:29 | disposition home or self-care (01) ==
LOC: JP.ED 15:25
DX: S20.221A Contusion of right back wall of thorax, initial encounter (principal); S00.01XA Abrasion of scalp, initial encounter; I25.10 Atherosclerotic heart disease of native coronary artery without angina pectoris; E78.00 Pure hypercholesterolemia, unspecified; I10 Essential (primary) hypertension; I25.2 Old myocardial infarction; Z79.82 Long term (current) use of aspirin; Z79.899 Other long term (current) drug therapy; W18.39XA Other fall on same level, initial encounter
CPT/HCPCS: 70450; 99282; 99283

== ENCOUNTER 2021-10-14 17:13 | Emergency (ER) | payer MEDICARE, BC ==
[2021-10-14 17:25] VITALS: BP 133/66; PULSE 60
== END 2021-10-14 19:48 | disposition home or self-care (01) ==
LOC: JP.ED 17:13
DX: R79.0 Abnormal level of blood mineral (principal); R60.0 Localized edema; S20.221D Contusion of right back wall of thorax, subsequent encounter; S00.01XD Abrasion of scalp, subsequent encounter; I25.10 Atherosclerotic heart disease of native coronary artery without angina pectoris; I10 Essential (primary) hypertension; I25.2 Old myocardial infarction; Z79.82 Long term (current) use of aspirin; Z79.899 Other long term (current) drug therapy; I48.91 Unspecified atrial fibrillation
CPT/HCPCS: 36415; 71101-LT; 72100; 73502-RT; 85610; 99283

== ENCOUNTER 2022-01-07 12:44 | Inpatient (IN) | payer MEDICARE, BC ==
[2022-01-07] MEDS ORDERED: Sodium Chloride 0.9% 10 ML Syringe FLUSH PRN ×2 (12:47→14:06)
[2022-01-07 13:15] LABS: ESTIMATED GFR 54 mL/min (>60)
[2022-01-07] MEDS ORDERED: Magnesium Oxide 400 MG Tab PO ONE (13:58)
[2022-01-07] MEDS ORDERED: Calcium Carbonate 500 MG Tab.Chew PO ONE (13:59)
[2022-01-07] MEDS ORDERED: Phytonadione 5 MG in Sodium Chloride 0.9% 50 ML IV ONE (14:06)
[2022-01-07] MEDS ORDERED: niCARdipine HCl 25 MG in Sodium Chloride 0.9% 240 ML IV SCH (15:00)
[2022-01-07] MEDS ORDERED: Acetaminophen 325 MG Tab, 50 Tab Bulk Bottle PO ONE (15:42)
[2022-01-07] MEDS ORDERED: Acetaminophen 325 MG Tab PO ONE (15:51)
[2022-01-07] MEDS ORDERED: Magnesium Hydroxide 400 MG/5 ML Susp 30 ML Cup PO PRN (17:42)
[2022-01-07] MEDS ORDERED: Melatonin 3 MG Tab PO PRN (17:42)
[2022-01-07] MEDS ORDERED: Ondansetron 4 MG/2 ML SDV IV PRN (17:42)
[2022-01-07] MEDS ORDERED: Ondansetron 4 MG Tab.DIS PO PRN (17:42)
[2022-01-07] MEDS: Acetaminophen 325 MG Tab PO PRN (19:48)
[2022-01-07] MEDS: SUCRALFATE 1 GM PO SCH (19:52)
[2022-01-07] MEDS ORDERED: CARBIDOPA PO ONE (21:00)
[2022-01-07] MEDS ORDERED: LEVODOPA PO ONE (21:00)
[2022-01-07] MEDS: SOTALOL 120 MG PO SCH (21:32)
[2022-01-07] MEDS: ATORVASTATIN 80 MG PO SCH (21:33)
[2022-01-08] MEDS ORDERED: Non-Formulary Medication 1 Each (Aspirin [Halfprin] 81 MG Tab.Ec) PO SCH (09:00)
[2022-01-08] MEDS: SUCRALFATE 1 GM PO SCH ×2 (09:55→16:07)
[2022-01-08] MEDS: SOTALOL 120 MG PO SCH ×2 (09:56→21:11)
[2022-01-08] MEDS: LEVODOPA PO SCH ×4 (09:57→21:11)
[2022-01-08] MEDS: CARBIDOPA PO SCH ×4 (09:57→21:11)
[2022-01-08] MEDS: OMEPRAZOLE 20 MG PO SCH (13:22)
[2022-01-08] MEDS: ATORVASTATIN 80 MG PO SCH (21:11)
[2022-01-09] MEDS: SUCRALFATE 1 GM PO SCH ×2 (07:31→17:10)
[2022-01-09] MEDS: CARBIDOPA PO SCH ×4 (07:31→20:46)
[2022-01-09] MEDS: LEVODOPA PO SCH ×4 (07:31→20:46)
[2022-01-09] MEDS: Acetaminophen 325 MG Tab PO PRN ×2 (08:16→12:50)
[2022-01-09] MEDS: OMEPRAZOLE 20 MG PO SCH (09:25)
[2022-01-09] MEDS: Aspirin 81 MG Tab.EC PO SCH (09:25)
[2022-01-09] MEDS: SOTALOL 120 MG PO SCH ×2 (09:26→20:45)
[2022-01-09] MEDS: ATORVASTATIN 80 MG PO SCH (20:44)
[2022-01-10] MEDS: SUCRALFATE 1 GM PO SCH ×2 (06:59→15:37)
[2022-01-10] MEDS: CARBIDOPA PO SCH ×4 (06:59→20:08)
[2022-01-10] MEDS: LEVODOPA PO SCH ×4 (06:59→20:08)
[2022-01-10] MEDS: OMEPRAZOLE 20 MG PO SCH (09:12)
[2022-01-10] MEDS: Aspirin 81 MG Tab.EC PO SCH (09:12)
[2022-01-10] MEDS: SOTALOL 120 MG PO SCH ×2 (09:13→20:09)
[2022-01-10] MEDS: Acetaminophen 325 MG Tab PO PRN (13:43)
[2022-01-10] MEDS ORDERED: Magnesium Hydroxide 400 MG/5 ML Susp 30 ML Cup PO ONE (17:00)
[2022-01-10] MEDS: ATORVASTATIN 80 MG PO SCH (20:08)
[2022-01-11] MEDS: CARBIDOPA PO SCH ×4 (07:37→21:07)
[2022-01-11] MEDS: LEVODOPA PO SCH ×4 (07:37→21:07)
[2022-01-11] MEDS: SUCRALFATE 1 GM PO SCH ×2 (07:38→17:29)
[2022-01-11] MEDS: OMEPRAZOLE 20 MG PO SCH (08:16)
[2022-01-11] MEDS: Aspirin 81 MG Tab.EC PO SCH (08:16)
[2022-01-11] MEDS: SOTALOL 120 MG PO SCH ×2 (08:16→21:05)
[2022-01-11] MEDS: Acetaminophen 325 MG Tab PO PRN (12:05)
[2022-01-11] MEDS ORDERED: Sodium Phosphate,Monobasic/Sodium Phosphate,Dibasic Enema 133 ML Bottle RECTAL PRN (12:48)
[2022-01-11] MEDS ORDERED: Bisacodyl 10 MG Supp RECTAL ONE (13:30)
[2022-01-11] MEDS: ATORVASTATIN 80 MG PO SCH (21:05)
[2022-01-12] MEDS: LEVODOPA PO SCH ×4 (08:01→20:48)
[2022-01-12] MEDS: CARBIDOPA PO SCH ×4 (08:01→20:48)
[2022-01-12] MEDS: SOTALOL 120 MG PO SCH ×2 (08:08→20:48)
[2022-01-12] MEDS: OMEPRAZOLE 20 MG PO SCH (08:09)
[2022-01-12] MEDS: Aspirin 81 MG Tab.EC PO SCH (08:09)
[2022-01-12] MEDS: Sucralfate 1 GM Tab PO SCH ×2 (09:31→16:17)
[2022-01-12] MEDS: ATORVASTATIN 80 MG PO SCH (20:47)
[2022-01-12 23:46] VITALS: PULSE 60
[2022-01-13 03:33] VITALS: BP 101/58
== END 2022-01-13 06:24 | DRG 83 ==
LOC: JP.ED 12:44 → OBSVTOIN 16:47 → JP.MS 16:47
PROVIDERS: ADMIT Internal Medicine; ATTEND Hospitalist
PROC: 30233K1 Transfusion of Nonautologous Frozen Plasma into Peripheral Vein, Percutaneous Approach (ICD-10-PCS; principal; 2022-01-07)
DX: S06.6X1A Traumatic subarachnoid hemorrhage with loss of consciousness of 30 minutes or less, initial encounter (principal); W19.XXXA Unspecified fall, initial encounter; S06.5XAA Traumatic subdural hemorrhage with loss of consciousness status unknown, initial encounter; I48.20 Chronic atrial fibrillation, unspecified; I48.91 Unspecified atrial fibrillation; R55 Syncope and collapse; S06.6X9A Traumatic subarachnoid hemorrhage with loss of consciousness of unspecified duration, initial encounter; S40.011A Contusion of right shoulder, initial encounter; E83.42 Hypomagnesemia; G20 Parkinson's disease; S00.83XA Contusion of other part of head, initial encounter; N18.31 Chronic kidney disease, stage 3a; E78.00 Pure hypercholesterolemia, unspecified; Z20.822 Contact with and (suspected) exposure to COVID-19; I12.9 Hypertensive chronic kidney disease with stage 1 through stage 4 chronic kidney disease, or unspecified chronic kidney disease; G47.30 Sleep apnea, unspecified; K21.9 Gastro-esophageal reflux disease without esophagitis; M54.9 Dorsalgia, unspecified; G89.29 Other chronic pain; I25.10 Atherosclerotic heart disease of native coronary artery without angina pectoris; Z79.01 Long term (current) use of anticoagulants; Z79.82 Long term (current) use of aspirin; Z79.899 Other long term (current) drug therapy; I25.2 Old myocardial infarction; Z95.0 Presence of cardiac pacemaker; W18.30XA Fall on same level, unspecified, initial encounter
CPT/HCPCS: 36415; 36430; 70450; 73030 ×2; 80048; 82040; 83735; 85025; 85610; 86850; 86900; 86901; 93005; 96365; 96367; 99285; A9270 ×4; J3430; J3490; J7050; P9017; U0002; 81001; 85018; 87086; 94660; 97110-GP; 97162-GP; 97530-GP; 97535-GP